=== PATIENT | female | born 1970 | race Caucasian/White ===

== ENCOUNTER → 2024-09-03 | Outpatient (REF) | payer MEDICARE | LOC: DX 10:12 | PROVIDERS: ATTEND Internal Medicine Infectious Disease | DX: J15.1 Pneumonia due to Pseudomonas (principal) | CPT/HCPCS: 36569; 71045 ==

== ENCOUNTER → 2024-12-03 | Outpatient (REF) | payer MEDICARE | LOC: DX 12:25 | PROVIDERS: ATTEND Internal Medicine Infectious Disease | DX: Z45.2 Encounter for adjustment and management of vascular access device (principal); J18.9 Pneumonia, unspecified organism | CPT/HCPCS: 36569; 71045 ==